=== PATIENT | male | born 1950 | race Caucasian/White ===

== ENCOUNTER → 2016-04-05 | Outpatient (CLI) | payer BC | LOC: BHSO 10:25 | DX: F41.1 Generalized anxiety disorder (principal) ==

== ENCOUNTER → 2016-05-31 | Outpatient (CLI) | payer BC | LOC: BHSO 09:55 | DX: F33.1 Major depressive disorder, recurrent, moderate (principal) ==

== ENCOUNTER → 2016-10-21 | Outpatient (CLI) | payer BC | LOC: BHSO 11:09 | DX: F41.1 Generalized anxiety disorder (principal) ==

== ENCOUNTER → 2017-01-17 | Outpatient (CLI) | payer BC | LOC: BHSO 11:00 | DX: F33.1 Major depressive disorder, recurrent, moderate (principal) ==